=== PATIENT | female | born 1970 | race Caucasian/White ===

== ENCOUNTER 2018-06-28 11:12 | Inpatient (IN) | payer OTHER, MEDICAID ==
[2018-06-28] MEDS: ONDANSETRON (ODT) 4 MG TAB ODT (12:44)
[2018-06-28] MEDS: HYDROCODONE/APAP (5/325) TAB PO (12:45)
[2018-06-28 13:01] LABS: ADD MAN DIFF? NO
[2018-06-28 13:10] LABS: BASOPHIL # 0.1 10^3/ul (0.0-0.1); BASOPHILS % 0.6 % (0.0-2.0); EOSINOPHILS # 0.2 10^3/ul (0.0-0.5); EOSINOPHILS % 1.7 % (0.0-7.0); HEMATOCRIT 42.6 % (37.0-47.0); HEMOGLOBIN 14.5 g/dl (12.0-16.0); LYMPHOCYTES # 3.9 10^3/ul (0.8-2.9); LYMPHOCYTES % 35.9 % (15.0-51.0); MEAN CORPUSCULAR HEMOGLOBIN 31.1 pg (29.0-33.0); MEAN CORPUSCULAR VOLUME 91.4 fl (82.0-101.0); MEAN PLATELET VOLUME 10.9 fl (7.4-10.4); MONOCYTE # 0.8 10^3/ul (0.3-0.9); MONOCYTES % 7.6 % (0.0-11.0); NEUTROPHIL # 5.8 10^3/ul (1.6-7.5); NEUTROPHILS % 53.7 % (39.0-77.0); PLATELET COUNT 228 10^3/UL (140-415); RED BLOOD COUNT 4.66 10^6/ul (4.20-5.40)
[2018-06-28 13:10] LABS: WHITE BLOOD COUNT 10.9 10^3/ul (4.8-10.8)
[2018-06-28 13:14] LABS: ADD UMIC YES; UR ASCORBIC ACID NEGATIVE (NEGATIVE); UR BILIRUBIN (Dip) NEGATIVE (NEGATIVE); UR BLOOD (Dip) NEGATIVE (NEGATIVE); UR CLARITY SLIGHTLY CLOUDY (CLEAR); UR COLOR YELLOW (YELLOW); UR GLUCOSE (Dip) 3+ mg/dL (NEGATIVE); UR KETONES (Dip) NEGATIVE (NEGATIVE); UR LEUKOCYTE ESTERASE (Dip) 3+ Leu/ul (NEGATIVE); UR NITRITE (Dip) NEGATIVE (NEGATIVE); UR RBC 0 /HPF (0-5); UR SPECIFIC GRAVITY (Dip) 1.017 (1.003-1.030); UR SQUAMOUS EPITHELIAL CELL FEW /HPF (FEW); UR TOTAL PROTEIN (Dip) NEGATIVE (NEGATIVE); UR UROBILINOGEN (Dip) NEGATIVE (NEGATIVE); UR WBC 10 /HPF (0-5)
[2018-06-28 13:27] LABS: CARBON DIOXIDE 30 mmol/L (21-31); CHLORIDE 100 mmol/L (97-110); SODIUM 140 mmol/L (135-144)
[2018-06-28 13:28] LABS: ALANINE AMINOTRANSFERASE 38 IU/L (13-69); ALBUMIN 4.2 g/dl (3.3-4.9); ALKALINE PHOSPHATASE 68 IU/L (42-121); ANION GAP 10 (5-13); ASPARTATE AMINO TRANSFERASE 34 IU/L (15-46); BILIRUBIN,INDIRECT 0.3 mg/dl (0-1.1); BILIRUBIN,TOTAL 0.3 mg/dl (0.2-1.3); BLOOD UREA NITROGEN 14 mg/dl (7-20); CALCIUM 9.7 mg/dl (8.4-10.2); CREATININE 0.45 mg/dl (0.44-1.00); Estimated GFR > 60 mL/min (>60); GLUCOSE 209 mg/dl (70-220); LIPASE 1601 U/L (23-300); TOTAL PROTEIN 7.7 g/dl (6.1-8.1)
[2018-06-28] MEDS: SOD CHLORIDE 0.9% 1,000 ML IV ×2 (14:26→18:33)
[2018-06-28] MEDS ORDERED: ONDANSETRON 4 MG INJ IV ×2 (15:00→17:30)
[2018-06-28] MEDS ORDERED: ACETAMINOPHEN 325 MG TAB PO (15:00)
[2018-06-28] MEDS ORDERED: GLUCAGON 1 MG INJ IM (17:30)
[2018-06-28] MEDS ORDERED: HYDROCODONE/APAP (5/325) TAB PO (17:30)
[2018-06-28] MEDS ORDERED: GLUCOSE GEL 15 GRAM TUBE BUCCAL (17:30)
[2018-06-28] MEDS ORDERED: DEXTROSE 50% 50 ML SYRINGE IV ×2 (17:30)
[2018-06-28] MEDS ORDERED: MAGNESIUM HYDROXIDE 30ML CUP PO (17:30)
[2018-06-28] MEDS ORDERED: LORAZEPAM 2 MG INJ IV (17:30)
[2018-06-28] MEDS ORDERED: ALBUTEROL/IPRATROPIUM (NEB) 3 ML AMP HHN (17:30)
[2018-06-28] MEDS ORDERED: NITROGLYCERIN (SL) 0.4 MG TAB SL (17:30)
[2018-06-28] MEDS ORDERED: NACL 0.9% 3 ML SYG IV (17:30)
[2018-06-28] MEDS ORDERED: morphine 2 MG INJ IV (17:30)
[2018-06-28] MEDS ORDERED: DOCUSATE SODIUM 100 MG CAP PO (17:30)
[2018-06-28] MEDS ORDERED: GLUCOSE GEL 15 GRAM TUBE PO ×2 (17:30)
[2018-06-28] MEDS ORDERED: hydrALAzine 20 MG INJ IV (17:30)
[2018-06-28] MEDS: CEFTRIAXONE 1 GM/50 ML (PMX) 50 ML IVPB (18:32)
[2018-06-28 19:15] LABS: FREE T4 (FREE THYROXINE) 1.76 ng/dl (0.64-1.79)
[2018-06-28 19:22] LABS: ETHANOL < 10.0 mg/dl (0-0)
[2018-06-28] MEDS: INSULIN ASPART [NOVOLOG] 3 ML PEN SC (20:57)
[2018-06-28] MEDS: HEPARIN 5,000 UNIT/1 ML VIAL SC (21:19)
[2018-06-29] MEDS: INSULIN ASPART [NOVOLOG] 3 ML PEN SC ×4 (01:00→12:52)
[2018-06-29] MEDS ORDERED: ACCU-CHEK XX (02:00)
[2018-06-29] MEDS: SOD CHLORIDE 0.9% 1,000 ML IV ×2 (05:03→13:30)
[2018-06-29] MEDS: PANTOPRAZOLE 40 MG INJ IV (05:04)
[2018-06-29 05:22] LABS: ADD MAN DIFF? NO
[2018-06-29 05:25] LABS: BASOPHIL # 0.1 10^3/ul (0.0-0.1); BASOPHILS % 0.5 % (0.0-2.0); EOSINOPHILS # 0.2 10^3/ul (0.0-0.5); EOSINOPHILS % 2.5 % (0.0-7.0); HEMATOCRIT 40.3 % (37.0-47.0); HEMOGLOBIN 13.5 g/dl (12.0-16.0); LYMPHOCYTES # 3.1 10^3/ul (0.8-2.9); LYMPHOCYTES % 33.7 % (15.0-51.0); MEAN CORPUSCULAR HGB CONC 33.5 g/dl (32.0-37.0); MEAN CORPUSCULAR VOLUME 92.4 fl (82.0-101.0); MEAN PLATELET VOLUME 11.3 fl (7.4-10.4); MONOCYTE # 0.8 10^3/ul (0.3-0.9); MONOCYTES % 8.4 % (0.0-11.0); NEUTROPHIL # 5.1 10^3/ul (1.6-7.5); NEUTROPHILS % 54.6 % (39.0-77.0); PLATELET COUNT 203 10^3/UL (140-415); RED BLOOD COUNT 4.36 10^6/ul (4.20-5.40); RED CELL DISTRIBUTION WIDTH 11.9 % (11.5-14.5)
[2018-06-29 05:25] LABS: WHITE BLOOD COUNT 9.3 10^3/ul (4.8-10.8)
[2018-06-29 06:32] LABS: ANION GAP 10 (5-13); BLOOD UREA NITROGEN 15 mg/dl (7-20); CALCIUM 9.1 mg/dl (8.4-10.2); CARBON DIOXIDE 25 mmol/L (21-31); CHLORIDE 108 mmol/L (97-110); CHOL/HDL RATIO 4.4 RATIO; CHOLESTEROL 129 mg/dl (100-200); CREATININE 0.44 mg/dl (0.44-1.00); Estimated GFR > 60 mL/min (>60); GLUCOSE 163 mg/dl (70-220); HDL CHOLESTEROL 29 mg/dl (34-88); LDL CHOLESTEROL,CALCULATED 76 mg/dl; LIPASE 138 U/L (23-300); MAGNESIUM 1.8 mg/dl (1.7-2.5); PHOSPHORUS 4.9 mg/dl (2.5-4.9); SODIUM 143 mmol/L (135-144); TRIGLYCERIDES 118 mg/dl (0-149)
[2018-06-29] MEDS: ACETAMINOPHEN 325 MG TAB PO (08:03)
[2018-06-29] MEDS: HEPARIN 5,000 UNIT/1 ML VIAL SC (08:06)
[2018-06-29 09:58] LABS: THYROID STIMULATING HORMONE 0.858 MIU/L (0.465-4.680)
[2018-06-29 11:49] LABS: HEMOGLOBIN A1C 11.1 % (0-5.9)
[2018-06-29] MEDS: CIPROFLOXACIN 250 MG TAB PO (15:20)
== END 2018-06-29 16:15 | disposition home or self-care (01) | DRG 439 ==
LOC: FTE 11:12 → MS1 14:54
DX: K85.90 Acute pancreatitis without necrosis or infection, unspecified (principal); N39.0 Urinary tract infection, site not specified; E11.9 Type 2 diabetes mellitus without complications; Z79.4 Long term (current) use of insulin; Z72.89 Other problems related to lifestyle
CPT/HCPCS: 36415; 74176; 76705; 80048; 80053; 80061; 80307; 81001; 81025; 82962; 83036; 83690; 83735; 84100; 84439; 84443; 85025; 87086; 99285-25